=== PATIENT | male | born 1995 | race Caucasian/White ===

== ENCOUNTER 2019-07-26 17:11 | Emergency (ER) | payer OTHER ==
[~2019-07-26] VITALS: Ht 175.3 cm; Wt 65.8 kg
--- NOTE | 2019-07-26 17:11 | NUR ---
Patient BIB [facility] for pre-booking medical screening exam, transferred to chair A. RN evaluating patient.
--- NOTE | 2019-07-26 17:15 | NUR ---
B[facility] FOR SUSPICION OF ETOH AND DRUG ABUSE. MEDICAL CLEARANCE REQUIRED. HR 126 UPON TRIAGE. PT HAS NO COMPLAINTS AT THIS TIME. SPEECH IS CLEAR AND FULL, PT AMBULATORY WITH STEADY GAIT IN HANDCUFFS.
[2019-07-26 17:24] VITALS: BP 143/92
--- NOTE | 2019-07-26 17:35 | NUR ---
SUSAN JASMINE AT BEDSIDE
[2019-07-26 17:57] VITALS: BP 139/87
--- NOTE | 2019-07-26 17:57 | NUR ---
Patient discharged AND MEDICALLY CLEARED. Written and verbal after care instructions given and explained REGARDING ETOH. Patient verbalized understanding. Police with in custody. All questions addressed prior to discharge. Advised to follow up with PMD.
== END 2019-07-26 17:57 ==
LOC: MED 17:11
DX: F10.129 Alcohol abuse with intoxication, unspecified (principal); Y90.9 Presence of alcohol in blood, level not specified; F17.210 Nicotine dependence, cigarettes, uncomplicated; Z02.89 Encounter for other administrative examinations
CPT/HCPCS: 99283